=== PATIENT | female | born 1945 | race Caucasian/White ===

== ENCOUNTER → 2017-05-13 | Outpatient (CLI) | payer BC ==
[~2017-05-13] MED LIST: ETODOLAC500 MG PO; LEVOTHYROXIN0.112 M1 PO; LEVOTHYROXINE0.05 MG PO; LOMOTIL TABLET1 EACH PO; LOSARTAN POTAS100 MG PO; ONDANSETRON HCL4 M2 PO; VITAMIN D3400 UNIT PO; ZYRTEC10 M1 PO
[2017-05-13 10:23] LABS: CREATININE 0.8 mg/dL (0.6-1.0)
== END ==
LOC: CAT 07:43
PROVIDERS: Nuclear Medicine Nuclear Cardiology
DX: I73.9 Peripheral vascular disease, unspecified (principal); I72.2 Aneurysm of renal artery

== ENCOUNTER → 2018-12-13 | Outpatient (CLI) | payer BC ==
[2018-12-13 08:57] LABS: CREATININE 0.8 mg/dL (0.6-1.0)
== END ==
LOC: CAT 07:59
PROVIDERS: Nuclear Medicine Nuclear Cardiology
DX: I72.2 Aneurysm of renal artery (principal); I77.4 Celiac artery compression syndrome; I73.9 Peripheral vascular disease, unspecified; I70.0 Atherosclerosis of aorta; M16.0 Bilateral primary osteoarthritis of hip; Z98.82 Breast implant status

== ENCOUNTER → 2020-11-06 | Outpatient (CLI) | payer OTHER ==
[2020-11-06 10:55] LABS: CREATININE 0.8 mg/dL (0.6-1.0)
== END ==
LOC: CAT 10:05
PROVIDERS: ATTEND Nuclear Medicine Nuclear Cardiology
DX: Z01.812 Encounter for preprocedural laboratory examination (principal); I72.2 Aneurysm of renal artery; K55.1 Chronic vascular disorders of intestine

== ENCOUNTER → 2020-11-07 | Outpatient (CLI) | payer OTHER | LOC: SJCVCIMAG | PROVIDERS: ATTEND Nuclear Medicine Nuclear Cardiology | DX: I65.23 Occlusion and stenosis of bilateral carotid arteries (principal); I72.2 Aneurysm of renal artery; K55.1 Chronic vascular disorders of intestine; I10 Essential (primary) hypertension; I77.9 Disorder of arteries and arterioles, unspecified; Z79.899 Other long term (current) drug therapy ==